=== PATIENT | female | born 1990 | race Caucasian/White ===

== ENCOUNTER 2022-05-18 12:54 | Emergency (ER) | payer BC ==
[~2022-05-18] VITALS: Ht 177.8 cm; Wt 82.4 kg
[2022-05-18] MEDS ORDERED: METF10004 PO (13:08)
[2022-05-18] MEDS ORDERED: CLEO300C2 PO (13:08)
[2022-05-18] MEDS ORDERED: MAGICMW SSP (13:08)
[2022-05-18] MEDS ORDERED: ZOLO100T PO (13:08)
[2022-05-18] MEDS ORDERED: ACET500P3 PO (13:08)
[2022-05-18] MEDS ORDERED: LISI30TA4 PO (13:08)
[2022-05-18] MEDS ORDERED: PRED20TA PO (13:08)
[2022-05-18] MEDS ORDERED: GLYX1TAB PO (13:08)
[2022-05-18] MEDS ORDERED: IBUP-1114 PO (13:08)
[2022-05-18] MEDS ORDERED: TRUL0.5I SC (13:08)
[2022-05-18] MEDS ORDERED: ISOVUE-370 76% 100ML VIAL As Ordered ONE (17:05)
[2022-05-18 17:12] LABS: BASO % 0.4 % (0.0-1.0); HEMATOCRIT 47.9 % (36.0-47.0); LYMPH # 1.8 10^3/uL (1.5-5.0); LYMPH % 24.6 % (24.0-44.0); MEAN CORPUSCULAR HEMOGLOBIN 29.8 pg (27.0-33.0); MEAN CORPUSCULAR HGB CONC 33.4 g/dl (32.0-36.5); MEAN CORPUSCULAR VOLUME 89.2 fl (80.0-96.0); MONO # 0.2 10^3/uL (0.0-0.8); MONO % 2.8 % (2.0-8.0); NEUTROPHILS # 5.3 10^3/uL (1.5-8.5); NEUTROPHILS % 71.1 % (36.0-66.0); PLATELET COUNT, AUTOMATED 384 10^3/uL (150-450); RED BLOOD COUNT 5.37 10^6/uL (4.00-5.40); WHITE BLOOD COUNT 7.4 10^3/uL (4.0-10.0)
[2022-05-18 18:54] VITALS: BP 130/89
== END 2022-05-18 18:57 | disposition home or self-care (01) ==
LOC: M ED 12:54
DX: B08.4 Enteroviral vesicular stomatitis with exanthem (principal); E11.9 Type 2 diabetes mellitus without complications; F10.10 Alcohol abuse, uncomplicated; I10 Essential (primary) hypertension; Z88.0 Allergy status to penicillin; Z88.1 Allergy status to other antibiotic agents; Z88.2 Allergy status to sulfonamides; Z79.811 Long term (current) use of aromatase inhibitors; Z79.4 Long term (current) use of insulin; Z79.899 Other long term (current) drug therapy
CPT/HCPCS: 36415; 70491; 80047; 84702; 85025; 87254; 87486; 87581; 87633; 87798; 99283; Q9967